=== PATIENT | female | born 1995 | race Two or more races ===

== ENCOUNTER 2021-06-03 18:55 | Emergency (ER) | payer MEDICAID ==
[~2021-06-03] VITALS: Ht 160 cm; Wt 74.4 kg
[2021-06-03 21:28] VITALS: BP 120/73
== END 2021-06-03 21:41 | disposition home or self-care (01) ==
LOC: ER 18:57
DX: U07.1 COVID-19 (principal); R53.83 Other fatigue
CPT/HCPCS: 36415; 71045; 87426

== ENCOUNTER 2021-10-04 15:54 | Emergency (ER) | payer MEDICAID ==
[~2021-10-04] VITALS: Ht 160 cm; Wt 73.9 kg
[2021-10-04 16:32] LABS: Basophils # (auto) 0.1 10 ^3/uL (0-0.2); Basophils % (auto) 0.8 % (0.0-2.0); Eosinophils # (auto) 0.2 10 ^3/uL (0-0.8); Eosinophils % (auto) 2.5 % (0.0-7.0); Hematocrit 31.6 % (36.0-46.0); Hemoglobin 10.3 g/dL (12.2-16.2); Lymphocytes # (auto) 2.2 10 ^3/uL (0.4-5.4); Lymphocytes % (auto) 34.8 % (10.0-50.0); Mean Corpuscular Hemoglobin 25.4 pg (28.0-32.0); Mean Corpuscular Hgb Conc. 32.5 g/dL (32.0-36.0); Mean Corpuscular Volume 78.2 fL (80.0-100.0); Monocytes # (auto) 0.3 10 ^3/uL (0-1.3); Monocytes % (auto) 5.2 % (0.0-12.0); Neutrophils # (auto) 3.5 10 ^3/uL (1.6-8.6); Neutrophils % (auto) 56.7 % (37.0-80.0); Nucleated Red Blood Cells % 0.1 %; Red Blood Cells 4.05 10^6/uL (4.0-5.20); Red Cell Distribution Width 16.3 % (11.8-14.3); White Blood Cell 6.2 10^3/uL (4.4-10.8)
[2021-10-04 16:48] LABS: Albumin 3.6 g/dL (3.4-5.0); Calcium 8.2 mg/dL (8.5-10.1); Potassium 3.6 mmol/L (3.5-5.1)
[2021-10-04 16:53] LABS: BUN/Creatinine Ratio 21.7; Bilirubin, Total 0.2 mg/dL (0.2-1.0); Total Protein 7.4 g/dL (6.4-8.2)
[2021-10-04 22:15] VITALS: BP 117/55
== END 2021-10-04 22:36 | disposition home or self-care (01) ==
LOC: ER 15:54
DX: U07.1 COVID-19 (principal); J12.82 Pneumonia due to coronavirus disease 2019
CPT/HCPCS: 36415; 71045; 80053; 84443; 84484; 85025; 93005